=== PATIENT | female | born 1930 | race Caucasian/White ===

== ENCOUNTER 2019-12-23 18:25 | Emergency (ER) | payer OTHER ==
[2019-12-23] MEDS ORDERED: Mastisol Adhesive Liq ONE (21:09)
--- NOTE | 2019-12-23 21:34 | ER ---
Nurse's Notes [facility] Name: Ally Bedolla Age: 89 yrs Sex: Female : 1930 Arrival Date: 12/23/2019 Time: 18:29 Bed 12 Private MD: Diagnosis: skin avulsion left hand Presentation: 12/23 18:47 Presenting complaint: Patient states: I tripped, fell and hit my L hand on the coffee ca1 table. Denies LOC, hitting head, not on blood thinners. Lac on L hand. Transition of care: patient was not received from another setting of care. Onset of symptoms was December 23, 2019. Risk Assessment: Do you want to hurt yourself or someone else? Patient reports no desire to harm self or others. Initial Sepsis Screen: Does the patient meet any 2 criteria? No. Patient's initial sepsis screen is negative. Does the patient have a suspected source of infection? No. Patient's initial sepsis screen is negative. Care prior to arrival: None. 18:47 Method Of Arrival: Ambulatory ca1 18:47 Acuity: ELLIE 4 ca1 21:09 Mechanism of Injury: Fall from standing position. Trauma event details: Injury occurred ca1 in the [facility], Injury occurred: at home. Injury occurred: December 23, 2019. Trauma Activation: Not Applicable Physician: ED Physician; Name: ; Notified At: ; Arrived At: Physician: General Surgeon; Name: ; Notified At: ; Arrived At: Physician: Radiology; Name: ; Notified At: ; Arrived At: Physician: Respiratory; Name: ; Notified At: ; Arrived At: Physician: Lab; Name: ; Notified At: ; Arrived At: Historical: - Allergies: 18:52 No Known Allergies; ca1 - Home Meds: 18:52 None [Active]; ca1 - PMHx: 18:52 None; ca1 - PSHx: 18:52 Hip replacement R; ca1 - Immunization history:: Adult Immunizations unknown, Last tetanus immunization: unknown, Pneumococcal vaccine is not up to date, patient has never been vaccinated, Flu vaccine is not up to date. Patient has never been vaccinated. - Coronavirus screen:: The patient has NOT traveled to [place], [place], or [place] in the past 14 days. The patient has NOT had contact with known/suspected case of Coronavirus?. - Social history:: Smoking status: Patient/guardian denies using tobacco, the patient reports quitting approximately 20 years ago. - Ebola Screening: : Patient negative for fever greater than or equal to 101.5 degrees Fahrenheit, and additional compatible Ebola Virus Disease symptoms Patient denies exposure to infectious person Patient denies travel to an Ebola-affected area in the 21 days before illness onset No symptoms or risks identified at this time. Screenin:55 Abuse screen: Denies threats or abuse. Denies injuries from another. Nutritional ca1 screening: No deficits noted. Tuberculosis screening: No symptoms or risk factors identified. Fall Risk Fall in past 12 months (25 points). Ambulatory Aid- Crutches/Cane/Walker (15 pts). Total Heart Fall Scale indicates Low Risk Score (25-44 pts). Fall prevention measures have been instituted. Side Rails Up X 2 Family Present and informed to notify staff if they need to leave bedside As available Patient and Family Educated on Fall Prevention Program and strategies. Assessment: 20:55 General: Appears in no apparent distress. comfortable, Behavior is calm, cooperative, ca1 appropriate for age. Pain: Complains of pain in left hand Pain currently is 5 out of 10 on a pain scale. Neuro: Level of Consciousness is awake, alert, obeys commands, Oriented to person, place, time, situation, Appropriate for age. Derm: Skin is fragile, is thin, Skin is pink, warm \T\ dry. Musculoskeletal: Circulation, motion, and sensation intact. Capillary refill < 3 seconds, Range of motion: intact in all extremities. Injury Description: Laceration sustained to dorsum of left hand is clean, superficial, 2.6 to 7.5 cm long, not bleeding, a small amount of bleeding noted at this time. 21:00 Reassessment: Dr Ramirez at bedside to see and examine pt. fc Vital Signs: 18:52 BP 127 / 91; Pulse 65; Resp 18 S; Temp 98.1(TE); Pulse Ox 98% on R/A; Weight 43.09 kg ca1 (R); Height 5 ft. 2 in. (157.48 cm) (R); 18:52 Body Mass Index 17.38 (43.09 kg, 157.48 cm) ca1 ED Course: 18:29 Patient arrived in ED. rg4 18:50 Triage completed. ca1 18:52 Arm band placed on right wrist. ca1 20:55 Lawrence Ramirez MD is Attending Physician. tw4 20:55 Patient has correct armband on for positive identification. Bed in low position. Call ca1 light in reach. Side rails up X 1. 20:55 Patient did not have IV access during this emergency room visit. ca1 21:05 Wound care: to Skin tear located on dorsum of left hand was cleaned with with NS, fc irrigated with normal saline, dressed with Steri Strips, nonstick pad and lakhwinder wrap. 21:18 No provider procedures requiring assistance completed. fc Administered Medications: No medications were administered Outcome: 21:23 Discharge ordered by . tw4 21:28 Discharged to home ambulatory, with family. fc 21:28 Condition: good 21:28 Discharge instructions given to patient, family, Instructed on discharge instructions, follow up and referral plans. wound care, s/s of infection Demonstrated understanding of instructions, follow-up care, wound care, s/s of infection Prescriptions given X none 21:29 Patient left the ED. fc Signatures: Nickie Thompson RN RN Ruthy Andino 4 Lawrence Ramirez MD MD 4 Danielle Aranda RN RN ca1 Corrections: (The following items were deleted from the chart) 21:10 21:09 Immunization history Last tetanus immunization: - up to date. ca1 ca1
--- NOTE | 2019-12-24 21:34 | EDPHYS ---
Physician Documentation [facility] Name: Ally Bedolla Age: 89 yrs Sex: Female : 1930 Arrival Date: 12/23/2019 Time: 18:29 Bed 12 Private MD: ED Physician Lawrence Ramirez HPI: 12/24 05:06 This 89 yrs old Female presents to ER via Ambulatory with complaints of Fall tw4 Injury, Skin Tear(s). 05:06 Details of fall: The patient fell from an upright position, while walking. Onset: The tw4 symptoms/episode began/occurred today. Severity of symptoms: At their worst the symptoms were mild, in the emergency department the symptoms are unchanged. The patient has not experienced similar symptoms in the past. 05:08 Associated injuries: The patient sustained dorsum of left hand. tw4 Historical: - Allergies: 12/23 18:52 No Known Allergies; ca1 - Home Meds: 18:52 None [Active]; ca1 - PMHx: 18:52 None; ca1 - PSHx: 18:52 Hip replacement R; ca1 - Immunization history:: Adult Immunizations unknown, Last tetanus immunization: unknown, Pneumococcal vaccine is not up to date, patient has never been vaccinated, Flu vaccine is not up to date. Patient has never been vaccinated. - Coronavirus screen:: The patient has NOT traveled to [place], [place], or [place] in the past 14 days. The patient has NOT had contact with known/suspected case of Coronavirus?. - Social history:: Smoking status: Patient/guardian denies using tobacco, the patient reports quitting approximately 20 years ago. - Ebola Screening: : Patient negative for fever greater than or equal to 101.5 degrees Fahrenheit, and additional compatible Ebola Virus Disease symptoms Patient denies exposure to infectious person Patient denies travel to an Ebola-affected area in the 21 days before illness onset No symptoms or risks identified at this time. ROS: 12/24 05:06 Constitutional: Negative for fever, chills, and weight loss, Eyes: Negative for injury, tw4 pain, redness, and discharge, Cardiovascular: Negative for chest pain, palpitations, and edema, Respiratory: Negative for shortness of breath, cough, wheezing, and pleuritic chest pain, Abdomen/GI: Negative for abdominal pain, nausea, vomiting, diarrhea, and constipation. MS/extremity: Positive for injury or acute deformity, laceration, Negative for decreased range of motion, deformity. Exam: 05:06 Constitutional: This is a well developed, well nourished patient who is awake, alert, tw4 and in no acute distress. Head/Face: Normocephalic, atraumatic. Chest/axilla: Normal chest wall appearance and motion. Nontender with no deformity. No lesions are appreciated. Cardiovascular: Regular rate and rhythm with a normal S1 and S2. No gallops, murmurs, or rubs. Normal PMI, no JVD. No pulse deficits. Respiratory: Lungs have equal breath sounds bilaterally, clear to auscultation and percussion. No rales, rhonchi or wheezes noted. No increased work of breathing, no retractions or nasal flaring. 05:06 Musculoskeletal/extremity: Extremities: noted in the dorsum of left hand: laceration. Vital Signs: 12/23 18:52 BP 127 / 91; Pulse 65; Resp 18 S; Temp 98.1(TE); Pulse Ox 98% on R/A; Weight 43.09 kg ca1 (R); Height 5 ft. 2 in. (157.48 cm) (R); 18:52 Body Mass Index 17.38 (43.09 kg, 157.48 cm) ca1 Laceration: 12/24 05:09 Wound Repair of 8cm ( 3.1in ) subcutaneous laceration to dorsum of left hand. Distal tw4 neuro/vascular/tendon intact. Anesthesia: Local anesthetic administered with 1% lidocaine. Skin closed with 1-0 Prolene using steri strips. MDM: 12/23 20:55 Patient medically screened. tw4 12/24 05:09 Differential diagnosis: contusion, fracture, laceration, sprain. Data reviewed: vital tw4 signs, nurses notes. Data interpreted: Pulse oximetry: Interpretation: normal. Counseling: I had a detailed discussion with the patient and/or guardian regarding: the historical points, exam findings, and any diagnostic results supporting the discharge/admit diagnosis. Administered Medications: No medications were administered Disposition: 12/23/19 21:23 Discharged to Home. Impression: skin avulsion left hand. - Condition is Stable. - Discharge Instructions: Deep Skin Avulsion. - Medication Reconciliation Form, Thank You Letter, Antibiotic Education, Prescription Opioid Use form. - Follow up: Private Physician; When: Upon discharge from the Emergency Department; Reason: If symptoms return, Recheck today's complaints, Continuance of care. - Problem is new. - Symptoms have improved. Signatures: Nickie Thompson RN RN Lawrence Ramirez MD MD tw4 Danielle Aranda RN RN ca1 Corrections: (The following items were deleted from the chart) 12/23 21:10 21:09 Immunization history Last tetanus immunization: - up to date. ca1 ca1 21:29 21:23 12/23/2019 21:23 Discharged to Home. Impression: skin avulsion left hand. fc Condition is Stable. Forms are Medication Reconciliation Form, Thank You Letter, Antibiotic Education, Prescription Opioid Use. Follow up: Private Physician; When: Upon discharge from the Emergency Department; Reason: If symptoms return, Recheck today's complaints, Continuance of care. Problem is new. Symptoms have improved. tw4 12/24 05:08 05:06 Associated injuries: The patient sustained dorsum of right hand, laceration, 8 tw4 cm(s), tw4
[2019-12-25 22:11] VITALS: BP 127/91; TEMP 98.1; O2SAT 98
== END 2019-12-23 21:29 | disposition home or self-care (01) ==
LOC: ER 18:25
PROC: 0JQK0ZZ Repair Left Hand Subcutaneous Tissue and Fascia, Open Approach (ICD-10-PCS; principal; 2019-12-23)
DX: S61.412A Laceration without foreign body of left hand, initial encounter (principal); W19.XXXA Unspecified fall, initial encounter; Y93.01 Activity, walking, marching and hiking; Y92.9 Unspecified place or not applicable
CPT/HCPCS: 99283

== ENCOUNTER 2020-05-10 09:34 | Emergency (ER) | payer OTHER ==
--- NOTE | 2020-05-10 10:25 | ER ---
Nurse's Notes [facility] Name: Ally Bedolla Age: 89 yrs Sex: Female : 1930 Arrival Date: 05/10/2020 Time: 09:35 Bed 8 Private MD: Diagnosis: Closed distal right radius fracture Presentation: 05/10 09:50 Chief complaint: Patient states: feet gave out while walking to mailbox yesterday, has iw pain, swelling, bruising to right wrist, no other injuries noted. Coronavirus screen: Proceed with normal triage. Patient denies a cough. Patient denies shortness of breath or difficulty breathing. Patient denies measured and/or subjective temperature greater than 100.4F prior to today's visit. Patient denies travel on a cruise ship or to a country the [facility] currently lists as an affected area. Patient denies contact with known and/or suspected case of COVID-19. Ebola Screen: Patient negative for fever greater than or equal to 101.5 degrees Fahrenheit, and additional compatible Ebola Virus Disease symptoms Patient denies exposure to infectious person. Patient denies travel to an Ebola-affected area in the 21 days before illness onset. No symptoms or risks identified at this time. Initial Sepsis Screen: Does the patient meet any 2 criteria? No. Patient's initial sepsis screen is negative. Does the patient have a suspected source of infection? No. Patient's initial sepsis screen is negative. Risk Assessment: Do you want to hurt yourself or someone else? Patient reports no desire to harm self or others. Onset of symptoms was May 09, 2020. 09:50 Acuity: ELLIE 4 iw 09:50 Method Of Arrival: Ambulatory iw Historical: - Allergies: 09:53 No Known Allergies; iw - Home Meds: 09:53 None [Active]; iw - PMHx: 09:53 Alzheimers; Heart Murmur; iw - PSHx: 09:53 Hip replacement R; iw - Immunization history:: Adult Immunizations. - Social history:: Smoking status: Patient denies any tobacco usage or history of. Screenin:51 Abuse screen: Denies threats or abuse. Nutritional screening: No deficits noted. rb1 Tuberculosis screening: No symptoms or risk factors identified. Fall Risk Fall in past 12 months (25 points). Secondary diagnosis (15 points) Alzheimer's, No IV (0 pts). Ambulatory Aid- None/Bed Rest/Nurse Assist (0 pts). Gait- Normal/Bed Rest/Wheelchair (0 pts) Mental Status- Overestimates/Forgets Limitations (15 pts.). Assessment: 09:51 General: Appears in no apparent distress. comfortable, Behavior is calm, cooperative. rb1 Pain: Complains of pain in right wrist Pain currently is 5 out of 10 on a pain scale. Pain began yesterday at 1800 when she went to the mailbox. Neuro: Level of Consciousness is awake, alert, obeys commands, Oriented to person, place, time, situation. Cardiovascular: Capillary refill < 3 seconds. Respiratory: Airway is patent Respiratory effort is even, unlabored, Respiratory pattern is regular, symmetrical. GI: No signs and/or symptoms were reported involving the gastrointestinal system. : No signs and/or symptoms were reported regarding the genitourinary system. Derm: Bruising that is dark purple, on right hand, forearm. 09:51 Musculoskeletal: Range of motion: limited in right wrist Swelling present in right rb1 wrist. 10:32 Reassessment: Patient appears in no apparent distress at this time. Patient and/or rb1 family updated on plan of care and expected duration. Pain level reassessed. Patient is alert, oriented x 3, equal unlabored respirations, skin warm/dry/pink. Vital Signs: 09:50 BP 155 / 59; Pulse 59; Resp 16; Temp 97.8; Pulse Ox 100% on R/A; iw 09:50 Weight 44.45 kg (R); Height 5 ft. 1 in. (154.94 cm); Pain 5/10; rb1 10:32 BP 144 / 58; Pulse 56; Resp 16; Pulse Ox 100% ; rb1 09:50 Body Mass Index 18.52 (44.45 kg, 154.94 cm) rb1 ED Course: 09:35 Patient arrived in ED. ag5 09:43 Robby Acosta NP is PHCP. pm1 09:43 Clint Quijano MD is Attending Physician. pm1 09:47 Nicky Mckeon, TOMAS is Primary Nurse. rb1 09:51 Patient has correct armband on for positive identification. Bed in low position. Call rb1 light in reach. Side rails up X 1. Pulse ox on. NIBP on. Warm blanket given. 09:52 Triage completed. iw 09:53 Arm band placed on. iw 10:06 Wrist Right 3 View XRAY In Process Unspecified. EDMS 10:10 Orthoglass splint: Sugar tong splint applied on right arm. Sling applied to right arm. [facility] 10:32 No provider procedures requiring assistance completed. Patient did not have IV access rb1 during this emergency room visit. Administered Medications: No medications were administered Outcome: 10:24 Discharge ordered by MD. pm1 10:32 Discharged to home via wheelchair, with family. rb1 10:32 Condition: stable 10:32 Discharge instructions given to family, Instructed on discharge instructions, follow up and referral plans. Demonstrated understanding of instructions, follow-up care, Prescriptions given X none 10:33 Patient left the ED. rb1 Signatures: Dispatcher [employer] Chelsea Manzano, TOMAS MARIN iw Nicky Mckeon RN RN rb1 Robby Acosta, [employer] MANAGER pm1 Grace Hoyt 5 Chichi Scanlon [facility]
--- NOTE | 2020-05-10 10:25 | EDPHYS ---
Physician Documentation [facility] Name: Ally Bedolla Age: 89 yrs Sex: Female : 1930 Arrival Date: 05/10/2020 Time: 09:35 Bed 8 Private MD: ED Physician Clint Quijano HPI: 05/10 10:12 This 89 yrs old Female presents to ER via Ambulatory with complaints of Fall pm1 Injury, Wrist Injury. 10:12 Details of fall: The patient fell from an upright position, while walking. Onset: The pm1 symptoms/episode began/occurred yesterday. Associated injuries: The patient sustained right wrist. Severity of symptoms: in the emergency department the symptoms are unchanged. The patient has not experienced similar symptoms in the past. The patient has not recently seen a physician. Patient was walking to the mailbox yesterday and her legs buckled and she fell to the ground with her right hand forward. No head injury, headache, neck pain, LOC. No chest pain, dizziness or shortness of breath. Her son applied a homemade splint to the right wrist. Historical: - Allergies: 09:53 No Known Allergies; iw - Home Meds: 09:53 None [Active]; iw - PMHx: 09:53 Alzheimers; Heart Murmur; iw - PSHx: 09:53 Hip replacement R; iw - Immunization history:: Adult Immunizations. - Social history:: Smoking status: Patient denies any tobacco usage or history of. ROS: 10:12 Constitutional: Negative for fever, chills, and weight loss, Neck: Negative for injury, pm1 pain, and swelling, Cardiovascular: Negative for chest pain, palpitations, and edema, Respiratory: Negative for shortness of breath, cough, wheezing, and pleuritic chest pain, Abdomen/GI: Negative for abdominal pain, nausea, vomiting, diarrhea, and constipation, Back: Negative for injury and pain. 10:12 Skin: Negative for injury, rash, and discoloration, Neuro: Negative for headache, weakness, numbness, tingling, and seizure. 10:12 MS/extremity: Positive for pain, swelling, tenderness, of the right wrist. Exam: 10:12 Constitutional: This is a well developed, well nourished patient who is awake, alert, pm1 and in no acute distress. Head/Face: Normocephalic, atraumatic. 10:12 Skin: Warm, dry with normal turgor. Normal color with no rashes, no lesions, and no evidence of cellulitis. 10:12 Neck: External neck: tenderness, is not appreciated, C-spine: no acute changes, vertebral tenderness, is not appreciated, ROM/movement: is normal, is supple, without pain, no range of motions limitations. 10:12 Cardiovascular: Exam negative for acute changes, Rate: normal, Rhythm: regular, Pulses: no pulse deficits are appreciated. 10:12 Respiratory: Exam negative for acute changes, respiratory distress, shortness of breath. 10:12 Musculoskeletal/extremity: Extremities: grossly normal except: noted in the right wrist: ecchymosis, swelling, tenderness, Pulses: noted to be 2+ in the right radial artery, the right hand Sensation intact. 10:12 Neuro: Exam negative for acute changes, Orientation: is normal, Mentation: is normal, Motor: is normal, moves all fours, Gait: is steady, at a normal pace, without difficulty. Vital Signs: 09:50 BP 155 / 59; Pulse 59; Resp 16; Temp 97.8; Pulse Ox 100% on R/A; iw 09:50 Weight 44.45 kg (R); Height 5 ft. 1 in. (154.94 cm); Pain 5/10; rb1 10:32 BP 144 / 58; Pulse 56; Resp 16; Pulse Ox 100% ; rb1 09:50 Body Mass Index 18.52 (44.45 kg, 154.94 cm) rb1 MDM: 09:49 Patient medically screened. pm1 09:50 ED course: Patient refused pain medications. pm1 10:02 Data reviewed: vital signs. Data interpreted: Pulse oximetry: on room air is 100 %. pm1 Interpretation: normal. 10:02 Counseling: I had a detailed discussion with the patient and/or guardian regarding: the pm1 historical points, exam findings, and any diagnostic results supporting the discharge/admit diagnosis, radiology results, the need for outpatient follow up, for definitive care, a orthopedic surgeon, to return to the emergency department if symptoms worsen or persist or if there are any questions or concerns that arise at home. 10:25 ED course: Patient refused narcotic pain medications. pm1 05/10 09:50 Order name: Wrist Right 3 View XRAY pm1 05/10 09:50 Order name: Splint - Sugar Tong - Forearm; Complete Time: 10:10 pm1 05/10 09:50 Order name: Sling; Complete Time: 10:10 pm1 Administered Medications: No medications were administered Disposition: 13:30 Co-signature as Attending Physician, Clint Quijano MD. rn Disposition: 05/10/20 10:24 Discharged to Home. Impression: Closed distal right radius fracture. - Condition is Stable. - Discharge Instructions: Wrist Fracture Treated With Immobilization, Wrist Splint, How to Use a Sling. - Medication Reconciliation Form, Thank You Letter, Antibiotic Education, Prescription Opioid Use form. - Follow up: Emergency Department; When: As needed; Reason: Worsening of condition. Follow up: Private Physician; When: 2 - 3 days; Reason: Recheck today's complaints, Continuance of care, Re-evaluation by your physician. - Problem is new. - Symptoms have improved. Signatures: Dispatcher [employer] EDMS Chelsea Zavala RN RN iw Nieto, Roman, MD MD rn Barber, Rebecca, RN RN rb1 Robby Acosta, FOREST RANGER TECHNICIAN FOREST RANGER TECHNICIAN pm1 Corrections: (The following items were deleted from the chart) 10:33 10:24 05/10/2020 10:24 Discharged to Home. Impression: Closed distal right radius rb1 fracture. Condition is Stable. Forms are Medication Reconciliation Form, Thank You Letter, Antibiotic Education, Prescription Opioid Use. Follow up: Emergency Department; When: As needed; Reason: Worsening of condition. Follow up: Private Physician; When: 2 - 3 days; Reason: Recheck today's complaints, Continuance of care, Re-evaluation by your physician. Problem is new. Symptoms have improved. pm1
[2020-05-10 10:39] VITALS: TEMP 97.8; O2SAT 100
[2020-05-10 10:40] VITALS: BP 144/58
--- NOTE | 2020-05-10 10:48 | RAD REPORT ---
EXAM DESCRIPTION: RAD - Wrist Right 3 View - 05/10/2020 10:06 am CLINICAL HISTORY: Right wrist pain status post injury FINDINGS: An impacted, comminuted fracture involves the distal right radius with moderate displaceme nt of fracture fragments. No dislocation is seen
== END 2020-05-10 10:33 | disposition home or self-care (01) ==
LOC: ER 09:34
PROC: 2W3CX1Z Immobilization of Right Lower Arm using Splint (ICD-10-PCS; principal; 2020-05-10)
DX: S52.501A Unspecified fracture of the lower end of right radius, initial encounter for closed fracture (principal); W19.XXXA Unspecified fall, initial encounter; Y93.01 Activity, walking, marching and hiking; Y92.009 Unspecified place in unspecified non-institutional (private) residence as the place of occurrence of the external cause; G30.9 Alzheimer's disease, unspecified; F02.80 Dementia in other diseases classified elsewhere, unspecified severity, without behavioral disturbance, psychotic disturbance, mood disturbance, and anxiety
CPT/HCPCS: 99284

== ENCOUNTER 2020-11-25 09:53 | Emergency (ER) | payer OTHER ==
--- OUTSIDE RECORDS SUMMARY | 2020-11-25 10:03 | XMS REPORT | Continuity of Care Document ---
:1930 Author Organization [facility] t Address [address] [place] [address] Care Team Providers Name Role Phone Ace Temple Attending Clinician Problems This patient has no known problems. Allergies, Adverse Reactions, Alerts This patient has no known allergies or adverse reactions. Medications This patient has no known medications. Procedures This patient has no known procedures. Encounters Start End Encounter Admission Attending Care Care Encounter Source Date/Time Date/Time Type Type Clinicians Facility Department ID 2020-06-22 2020-06-22 [facility] [id number] 14:41:14 23:59:00 Encounter [facility] [id number] Surgical [id number] Specialti [id number] es [address] 2020-06-22 2020-06-22 Office [facility] [id number] 14:14:27 14:29:27 Visit [facility] [id number] Surgical [id number] Specialti [id number] es [address] [place] Results This patient has no known results.
--- NOTE | 2020-11-25 10:27 | RAD REPORT ---
EXAM DESCRIPTION: CT - [id number] - 11/25/2020 10:10 am CLINICAL HISTORY: Trauma, head and neck injury. head injury COMPARISON: No comparisons TECHNIQUE: Axial 5 mm thick images of the head were obtained. Axial 2 mm thick images of the cervical spine were obtained with sagittal and coronal reconstruction images generated and reviewed. All CT scans are performed using dose optimization technique as appropriate and may include automated exposure control or mA/KV adjustment according to patient size. FINDINGS: CT HEAD WITHOUT CONTRAST: No acute hemorrhage, hydrocephalus or extra-axial collection is identified.Mild generalized brain atr ophy is present with mild periventricular and deep white matter chronic microvascular ischemic change s.No areas of brain edema or midline shift. The paranasal sinuses and right mastoids are clear.Left mastoid effusion is present.The calvarium is intact. CT CERVICAL SPINE WITHOUT CONTRAST: No fracture or subluxation.Multilevel spondylosis of the cervical spine is notedNo prevertebral soft tissues swelling is identified. Carotid atherosclerosis. Upper lung gust[place] are emphysematous. IMPRESSION: No acute intracranial or cervical spine findings. Mild left mastoid effusion. Mild cervical spondylosis.
--- NOTE | 2020-11-25 10:49 | RAD REPORT ---
EXAM DESCRIPTION: RAD - Hip Right 2 View - 11/25/2020 10:38 am CLINICAL HISTORY: fall;Pain COMPARISON: No comparisons FINDINGS: The bones are osteopenic. Right total hip arthroplasty is noted. No acute fracture or disl ocation evident.
--- NOTE | 2020-11-25 11:38 | ER ---
Nurse's Notes [facility] Name: Ally Bedolla Age: 89 yrs Sex: Female : 1930 Arrival Date: 11/25/2020 Time: 09:54 Bed 14 Private MD: Diagnosis: Contusion of right hip;Superficial injury of head Presentation: 11/25 10:00 Chief complaint: Patient states: Slipped and fell. I don't recall what I hit my head ca1 on. Lac on R pentecostal. Pain on R hip. Patient's son or daughter states: Slipped and fell few hours ago. Coronavirus screen: Client denies travel out of the [place] in the last 14 days. At this time, the client does not indicate any symptoms associated with coronavirus-19. Ebola Screen: Patient negative for fever greater than or equal to 101.5 degrees Fahrenheit, and additional compatible Ebola Virus Disease symptoms Patient denies exposure to infectious person. Patient denies travel to an Ebola-affected area in the 21 days before illness onset. No symptoms or risks identified at this time. Initial Sepsis Screen: Does the patient meet any 2 criteria? No. Patient's initial sepsis screen is negative. Does the patient have a suspected source of infection? No. Patient's initial sepsis screen is negative. Risk Assessment: Do you want to hurt yourself or someone else? Patient reports no desire to harm self or others. Onset of symptoms was November 25, 2020. 10:00 Method Of Arrival: Wheelchair ca1 10:00 Acuity: ELLIE 2 ca1 10:11 Care prior to arrival: None. Mechanism of Injury: Fall from standing position. Trauma ca1 event details: Injury occurred in the [facility], Injury occurred: at home. Injury occurred: November 25, 2020. Triage Assessment: 10:10 General: Appears in no apparent distress. comfortable, Behavior is calm, cooperative, ca1 appropriate for age. Pain: Complains of pain in right hip. EENT: No signs and/or symptoms were reported regarding the EENT system. Neuro: Level of Consciousness is awake, alert, obeys commands, Oriented to person. Cardiovascular: Heart tones S1 S2 present Capillary refill < 3 seconds Patient's skin is warm and dry. Respiratory: Airway is patent Respiratory effort is even, unlabored, Respiratory pattern is regular, symmetrical, Breath sounds are clear bilaterally. GI: Abdomen is flat, non-distended, Bowel sounds present X 4 quads. Abd is soft and non tender X 4 quads. : No signs and/or symptoms were reported regarding the genitourinary system. Derm: Skin is fragile, is thin, with poor turgor Skin is pink, warm \T\ dry. Musculoskeletal: Circulation, motion, and sensation intact. Capillary refill < 3 seconds, Range of motion: intact in all extremities. Trauma Activation: Alert Physician: ED Physician; Name: ; Notified At: ; Arrived At: Physician: General Surgeon; Name: ; Notified At: ; Arrived At: Physician: Radiology; Name: ; Notified At: ; Arrived At: Physician: Respiratory; Name: ; Notified At: ; Arrived At: Physician: Lab; Name: ; Notified At: ; Arrived At: Historical: - Allergies: 10:10 No Known Allergies; ca1 - Home Meds: 10:10 None [Active]; ca1 - PMHx: 10:10 Alzheimers; Heart Murmur; ca1 - PSHx: 10:10 Hip replacement R; ca1 - Immunization history:: Adult Immunizations not up to date. - Social history:: Smoking status: Patient denies any tobacco usage or history of. - Immunization history: Last tetanus immunization: unknown. - Family history:: not pertinent. - Hospitalizations: : No recent hospitalization is reported. Screenin:11 Abuse screen: Denies threats or abuse. Denies injuries from another. Tuberculosis ca1 screening: No symptoms or risk factors identified. 10:13 Nutritional screening: No deficits noted. Fall Risk Fall in past 12 months (25 points). ca1 Secondary diagnosis (15 points) Alzheimer's, Ambulatory Aid- Crutches/Cane/Walker (15 pts). Total Heart Fall Scale indicates High Risk Score (45 or more points). Fall prevention measures have been instituted. Side Rails Up X 2 Family Present and informed to notify staff if the need to leave the bedside As available patient and family educated on Fall Prevention Program and Strategies. Primary Survey: 10:11 NO uncontrolled hemorrhage observed. A: The patient is alert. Breathing/Chest: ca1 Respiratory pattern: regular, Respiratory effort: spontaneous, unlabored, Breath sounds: clear, bilaterally. Chest inspection: symmetrical rise and fall of the chest. Circulation: Heart tones present. Pulses: palpable bilateral radial, brachial, femoral, popliteal, posterior tibial and and dorsalis pedis arteries.. Skin color: pink, Skin temperature: warm, dry. Disability Alert. Exposure/Environment: All clothing and personal items were removed. Forensic evidence collection is not deemed to be indicated at this time. Items placed in patient belonging bag. Obvious injury(ies) are noted at this time: Lac on R pentecostal. Hematoma on R pentecostal A warming method has been applied: A warm blanket has been provided to the patient. 10:53 Reassessment Airway Airway Breathing/Chest Respiratory pattern Regular Respiratory ca1 effort Spontaneous Unlabored Chest inspection Symmetrical Circulation Heart tones Present Pulses Palpable Color [place] Temperature Warm Dry Disability Alert. Secondary Survey: 10:53 HEENT: No deficits noted. Gastrointestinal: No deficits noted. : No deficits noted. ca1 Musculoskeletal: No deficits noted. Assessment: 10:13 Reassessment: see triage notes. ca1 10:52 Reassessment: Patient appears in no apparent distress at this time. Patient and/or ca1 family updated on plan of care and expected duration. Pain level reassessed. Patient is alert, oriented x 3, equal unlabored respirations, skin warm/dry/pink. 11:45 Reassessment: Patient appears in no apparent distress at this time. Patient and/or ca1 family updated on plan of care and expected duration. Pain level reassessed. Patient is alert, oriented x 3, equal unlabored respirations, skin warm/dry/pink. Vital Signs: 10:00 BP 160 / 72; Resp 18 S; Temp 98.5; Weight 45.36 kg (R); Height 5 ft. 0 in. (152.40 cm) ca1 (R); 10:14 Pulse 70; Pulse Ox 100% on R/A; ca1 10:52 BP 172 / 65; Pulse 65; Resp 15 S; Pulse Ox 100% on R/A; ca1 11:45 BP 160 / 71; Pulse 72; Resp 16 S; Pulse Ox 99% on R/A; ca1 10:00 Body Mass Index 19.53 (45.36 kg, 152.40 cm) ca1 [place] Coma Score: 10:11 Eye Response: spontaneous(4). Verbal Response: oriented(5). Motor Response: obeys ca1 commands(6). Total: 15. Trauma Score (Adult): 10:11 Eye Response: spontaneous(1); Verbal Response: oriented(1); Motor Response: obeys ca1 commands(2); Systolic BP: > 89 mm Hg(4); Respiratory Rate: 10 to 29 per min(4); [place] Score: 15; Trauma Score: 12 ED Course: 09:54 Patient arrived in ED. ag5 09:56 Clint Quijano MD is Attending Physician. rn 10:07 Danielle Aranda RN is Primary Nurse. ca1 10:09 Triage completed. ca1 10:10 CT Head C Spine In Process Unspecified. EDMS 10:10 Arm band placed on right wrist. ca1 10:11 Patient has correct armband on for positive identification. Placed in gown. Bed in low ca1 position. Call light in reach. Side rails up X2. 10:11 Patient maintains SpO2 saturation greater than 95% on room air. ca1 10:13 nurse transition on. Pulse ox on. NIBP on. Warm blanket given. ca1 10:13 Thermoregulation: warm blanket given to patient. ca1 10:38 Hip Right 2 View In Process Unspecified. EDMS 11:00 Wound care: to laceration located on right pentecostal was cleaned with Hibiclens, dressed ca1 with Neosporin, 4X4s, Patient tolerated well. 12:12 No provider procedures requiring assistance completed. Patient did not have IV access ca1 during this emergency room visit. Administered Medications: 11:30 Drug: [place] 5 mg-325 mg 1 tabs {Note: rass 0.} Route: PO; ca1 12:10 Follow up: Response: No adverse reaction; Pain is decreased; RASS: Alert and Calm (0) ca1 Intake: 10:11 PO: 0ml; Total: 0ml. ca1 Outcome: 11:37 Discharge ordered by . rn 12:12 Discharged to home via wheelchair, with family. ca1 12:12 Condition: stable 12:12 Discharge instructions given to patient, family, Instructed on discharge instructions, follow up and referral plans. wound care, Demonstrated understanding of instructions, follow-up care, medications, wound care. 12:12 Patient's length of stay was not longer than 2 hours. ca1 12:13 Patient left the ED. ca1 Signatures: Dispatcher [employer] EDRI Clint Quijano MD MD rn Acob, Cheryl, RN RN ca1 Chichi Scanlon ag5
--- NOTE | 2020-11-25 11:38 | EDPHYS ---
Physician Documentation [facility] Name: Ally Bedolla Age: 89 yrs Sex: Female : 1930 Arrival Date: 11/25/2020 Time: 09:54 Bed 14 Private MD: ED Physician Clint Quijano HPI: 11/25 10:07 This 89 yrs old Female presents to ER via Unassigned with complaints of Fall rn Injury. 10:07 Details of fall: The patient fell from an upright position. Onset: The symptoms/episode rn began/occurred just prior to arrival. Associated injuries: The patient sustained injury to the head. Severity of symptoms: At their worst the symptoms were mild, in the emergency department the symptoms are unchanged. The patient has not experienced similar symptoms in the past. The patient has not recently seen a physician. Reports slipped on tile, hit head, no LOC, not on blood thinners, reports mild pain to right side of head and right hip. Family member reports ambulatory to vehicle and acting normal. . Historical: - Allergies: 10:10 No Known Allergies; ca1 - Home Meds: 10:10 None [Active]; ca1 - PMHx: 10:10 Alzheimers; Heart Murmur; ca1 - PSHx: 10:10 Hip replacement R; ca1 - Immunization history:: Adult Immunizations not up to date. - Social history:: Smoking status: Patient denies any tobacco usage or history of. - Immunization history: Last tetanus immunization: unknown. - Family history:: not pertinent. - Hospitalizations: : No recent hospitalization is reported. ROS: 10:07 Constitutional: Negative for fever, chills, and weight loss, Eyes: Negative for injury, rn pain, redness, and discharge, Neck: Negative for injury, pain, and swelling, Cardiovascular: Negative for chest pain, palpitations, and edema, Respiratory: Negative for shortness of breath, cough, wheezing, and pleuritic chest pain, Abdomen/GI: Negative for abdominal pain, nausea, vomiting, diarrhea, and constipation, Back: Negative for injury and pain, MS/Extremity: + right hip pain Skin: + bruising and cut to right side of head Neuro: Negative for weakness, numbness, tingling, and seizure. Exam: 10:07 Constitutional: This is a well developed, well nourished patient who is awake, alert, rn and in no acute distress. Blood noted on blouse and in hair. Head/Face: Normocephalic, + right temporal region with 2 cm ecchymosis and along inferior margin of ecchymosis a 1cm angulated/superficial skin tear, no active bleeding. Eyes: Pupils equal round and reactive to light, extra-ocular motions intact. Neck: No midline tenderness Chest/axilla: Normal chest wall appearance and motion. Nontender with no deformity. Cardiovascular: Regular rate and rhythm. No pulse deficits. Respiratory: Speaking full sentences. No increased work of breathing, no retractions or nasal flaring. Abdomen/GI: soft, non-tender Back: No spinal tenderness. Skin: Warm, dry MS/ Extremity: Pulses equal, no cyanosis. Neurovascular intact. Mild right hip tenderness and painful ROM. Neuro: Awake and alert, GCS 15, oriented to person, place, time, and situation. Cranial nerves II-XII grossly intact. Motor strength 5/5 in all extremities. Sensory grossly intact. Cerebellar exam normal. Normal gait. Vital Signs: 10:00 BP 160 / 72; Resp 18 S; Temp 98.5; Weight 45.36 kg (R); Height 5 ft. 0 in. (152.40 cm) ca1 (R); 10:14 Pulse 70; Pulse Ox 100% on R/A; ca1 10:52 BP 172 / 65; Pulse 65; Resp 15 S; Pulse Ox 100% on R/A; ca1 11:45 BP 160 / 71; Pulse 72; Resp 16 S; Pulse Ox 99% on R/A; ca1 10:00 Body Mass Index 19.53 (45.36 kg, 152.40 cm) ca1 [place] Coma Score: 10:11 Eye Response: spontaneous(4). Verbal Response: oriented(5). Motor Response: obeys ca1 commands(6). Total: 15. Trauma Score (Adult): 10:11 Eye Response: spontaneous(1); Verbal Response: oriented(1); Motor Response: obeys ca1 commands(2); Systolic BP: > 89 mm Hg(4); Respiratory Rate: 10 to 29 per min(4); Matt Score: 15; Trauma Score: 12 MDM: 09:56 Patient medically screened. rn 11:35 Differential diagnosis: closed head injury, contusion, fracture, laceration, skin tear. rn 11:35 Data reviewed: vital signs, nurses notes, radiologic studies, CT scan, plain films, and rn as a result, I will discharge patient. Counseling: I had a detailed discussion with the patient and/or guardian regarding: the historical points, exam findings, and any diagnostic results supporting the discharge/admit diagnosis, lab results, radiology results, the need for outpatient follow up, to return to the emergency department if symptoms worsen or persist or if there are any questions or concerns that arise at home. Response to treatment: the patient's symptoms have mildly improved after treatment, and as a result, I will discharge patient. Special discussion: Based on the patient's history, exam and DX evaluation, there is no indication for emergent intervention or inpatient TX. It is understood by the patient/guardian that if the SXs persist or worsen they need to return immediately for re-evaluation. I discussed with the patient/guardian in detail that at this point there is no indication for admission to the hospital. It is understood, however, that if the symptoms persist or worsen the patient needs to return immediately for re-evaluation. ED course: Neg ct head/cspine, neg right hip, ambulatory before and ambulatory to bathroom. Will dc home with return precautions.. 11/25 10:06 Order name: CT Head C Spine; Complete Time: 10:55 rn 11/25 10:24 Order name: Hip Right 2 View; Complete Time: 10:55 EDMS Administered Medications: 11:30 Drug: [place] 5 mg-325 mg 1 tabs {Note: rass 0.} Route: PO; ca1 12:10 Follow up: Response: No adverse reaction; Pain is decreased; RASS: Alert and Calm (0) ca1 Disposition: 11/25/20 11:37 Discharged to Home. Impression: Contusion of right hip, Superficial injury of head. - Condition is Stable. - Discharge Instructions: Head Injury, Adult, Skin Tear Care. - Medication Reconciliation Form, Thank You Letter, Antibiotic Education, Prescription Opioid Use form. - Follow up: Private Physician; When: As needed; Reason: Recheck today's complaints, Re-evaluation by your physician. - Problem is new. - Symptoms have improved. Signatures: Dispatcher [employer] EDMS Clint Quijano MD MD rn Acob, TOMAS Santos RN ca1 Corrections: (The following items were deleted from the chart) 10:24 10:07 Ankle Right 3 View+RAD.RAD.BRZ ordered. EDMS EDMS 11:36 10:07 Constitutional: This is a well developed, well nourished patient who is awake, rn alert, and in no acute distress. Blood noted on blouse and in hair. Head/Face: Normocephalic, + right temporal region with 2 cm ecchymosis and along inferior margin of ecchymosis a 1cm angulated/superficial laceration, no active bleeding. Eyes: Pupils equal round and reactive to light, extra-ocular motions intact. Neck: No midline tenderness Chest/axilla: Normal chest wall appearance and motion. Nontender with no deformity. Cardiovascular: Regular rate and rhythm. No pulse deficits. Respiratory: Speaking full sentences. No increased work of breathing, no retractions or nasal flaring. Abdomen/GI: soft, non-tender Back: No spinal tenderness. Skin: Warm, dry MS/ Extremity: Pulses equal, no cyanosis. Neurovascular intact. Mild right hip tenderness and painful ROM. Neuro: Awake and alert, GCS 15, oriented to person, place, time, and situation. Cranial nerves II-XII grossly intact. Motor strength 5/5 in all extremities. Sensory grossly intact. Cerebellar exam normal. Normal gait. rn 12:13 11:37 11/25/2020 11:37 Discharged to Home. Impression: Contusion of right hip; ca1 Superficial injury of head. Condition is Stable. Forms are Medication Reconciliation Form, Thank You Letter, Antibiotic Education, Prescription Opioid Use. Follow up: Private Physician; When: As needed; Reason: Recheck today's complaints, Re-evaluation by your physician. Problem is new. Symptoms have improved. rn
[2020-11-25] MEDS ORDERED: HYDROCODONE/APAP 5/325 MG TAB ONE (11:42)
[2020-11-25 12:27] VITALS: TEMP 98.5
[2020-11-25 12:31] VITALS: BP 160/71; O2SAT 99
== END 2020-11-25 12:13 | disposition home or self-care (01) ==
LOC: ER 09:53
DX: S00.90XA Unspecified superficial injury of unspecified part of head, initial encounter (principal); S70.01XA Contusion of right hip, initial encounter; W01.0XXA Fall on same level from slipping, tripping and stumbling without subsequent striking against object, initial encounter; Y93.9 Activity, unspecified; Y92.9 Unspecified place or not applicable
CPT/HCPCS: 70450; 72125; 99285; G0390

== ENCOUNTER 2020-12-08 10:23 | Observation (INO) | payer OTHER ==
--- OUTSIDE RECORDS SUMMARY | 2020-12-08 10:56 | XMS REPORT | Continuity of Care Document ---
:1930 Author Organization [facility] t Address [address] [place] [address] Care Team Providers Name Role Phone Ace [...] Type Clinicians Facility Department ID 2020-06-22 2020-06-22 [facility] [id number] 14:41:14 23:59:00 Encounter [facility] [id number] Surgical [id number] Specialti [phone] es [address] 2020-06-22 2020-06-22 Office [facility] [id number] 14:14:27 14:29:27 Visit [facility] [id number] Surgical [id number] Specialti [phone] es 198 [place] Results This patient has no known results.
[2020-12-08 11:03] LABS: Absolute Lymphocytes (CBC) 1.3 K/uL (0.7-4.9); Basophils % 0.4 % (0-1.3); Hematocrit 38.4 % (36.0-45.0); Lymphocytes % 9.7 % (15.3-44.8); MPV 8.3 fL (7.6-11.3); RBC Red Blood Cell Count 4.17 M/uL (3.86-4.86)
[2020-12-08 11:10] LABS: Protime INR 1.02
[2020-12-08 11:26] LABS: ALT/SGPT 17 U/L (12-78); AST/SGOT 33 U/L (15-37); Albumin 3.5 g/dL (3.4-5.0); Alkaline Phosphatase 145 U/L (45-117); BUN Blood Urea Nitrogen 19 mg/dL (7-18); Bicarbonate 27 mmol/L (21-32); Bilirubin Direct 0.2 mg/dL (0-0.2); Bilirubin Total 0.6 mg/dL (0.2-1.0); Creatine Phosphokinase 363 U/L (26-192); Glucose Level 94 mg/dL (74-106); Magnesium 2.3 mg/dL (1.8-2.4); NT PRO-BNP 1022 pg/mL (<450); Potassium 4.3 mmol/L (3.5-5.1); Protein, Total 7.3 g/dL (6.4-8.2); Sodium Level 138 mmol/L (136-145); Troponin (Emerg Dept Use Only) < 0.02 ng/mL (0.0-0.045)
[2020-12-08 11:31] LABS: Urine Bacteria NONE SEEN /HPF (<20)
[2020-12-08 11:32] LABS: Urine Blood TRACE (NEG); Urine Glucose NEGATIVE (NEG); Urine Protein NEGATIVE (NEG); Urine Specific Gravity 1.025 (1.005-1.030)
[2020-12-08] MEDS ORDERED: NA CHLORIDE 0.9% 250 ML ONE (11:48)
--- NOTE | 2020-12-08 12:12 | RAD REPORT ---
EXAM DESCRIPTION: CT - Head C Spine Cap W Anish - 12/08/2020 11:43 am CLINICAL HISTORY: fall, head, neck, chest and abdomen pain COMPARISON: No comparisons TECHNIQUE: Axial [address] head images were obtained. Axial [address] cervical spine images were obtaine d with sagittal and coronal reconstruction images reviewed. During dynamic enhancement of 100mL non-i onic contrast, axial 5 mm images of the chest, abdomen and pelvis were obtained. Biphasic technique p erformed of the abdomen and pelvis. All CT scans are performed using dose optimization technique as appropriate and may include automated exposure control or mA/KV adjustment according to patient size. FINDINGS: No intracranial hemorrhage, mass or edema. No midline shift or abnormal fluid collection. Mastoid air cells and paranasal sinuses are clear. No skull fracture. Atrophy and chronic ischemic changes are present. Ventricles are in proportion to the volume loss. Cervical bodies are normal in height. Anterior subluxation of C6 on C7 is minimal and can be accounte d for by prominent facet degenerative change. Facet hypertrophy and uncovertebral joint hypertrophy c ause significant bony foraminal stenosis on the left at C3-4 with pronounced left-side and moderate r ight-sided foraminal stenosis at C4-5 and significant bilateral C5-6 foraminal stenosis. Left foramin al stenosis at C6-7. No other alignment abnormality seen. Significant dens anterior arch C1 degenerat olvin change present. Disc space narrowing present at all levels except C2-3. No paraspinal mass or hem atoma seen. Central canal detail is inherently limited. Concerns for traumatic disc herniation or tra umatic cord injury can be further addressed with MR imaging. CT chest shows no pneumothorax, pulmonary contusion or acute pleural fluid collection. Focal 3 centim eter fluid attenuation collection posteromedial right mid chest previous small loculated pleural flui d collection. No acute bone finding in this region. Significance is doubtful. No mediastinal hematoma and the aorta and pulmonary arteries are unremarkable. No chest will mass or abnormal axillary findi ng. No acute rib fractures seen. Old rib fractures noted on the left. No scapula fracture. The patien t does have advanced degenerative change at the left shoulder joint and less pronounced right shoulde r joint degenerative change. Small to moderate-sized hiatal hernia is present. Patient has accentuated thoracic kyphosis. There is approximately 50% wedge compression of the T7 bod y. Posterior wall height is preserved. No associated paraspinal mass or hematoma. Patient has concavi ty to the superior endplates of T4 and T5 with overall body height preserved. No acute fracture lines are identifiable. CT abdomen and pelvis show no injury to solid abdominal viscera. Gallbladder and biliary tree are unr emarkable. No acute bowel injury seen. There is large amount of stool present in the colon. Rectum is dilated by stool to 7 cm. There is diverticulosis without diverticulitis. No free air, free fluid or abnormal stranding. No urinary bladder abnormality. Right hip prosthesis in place. Left hip joint degenerative changes are present. Fracture is present a t the left ischial tuberosity without periosteal reaction or callus formation. No sacral ala fracture confirmed. Advanced degenerative change present in the lumbar spine. No acute lumbar compression fra cture identified. Fracture of the left superior pubic ramus is present. No fracture of the acetabulum identified. No proximal femur fracture identifiable. No significant vascular finding. IMPRESSION: Atrophy and chronic ischemic changes are present with no acute CT Head finding. Prominent cervical spine degenerative changes are present with no acute finding. No pneumothorax, pulmonary contusion or acute lung parenchymal finding. Approximately 50% wedge compression fracture deformity of the T7 body. Findings favor but are not def initive for chronic injury. Acute fractures of the left superior pubic ramus and ischium. No traumatic injury to the soft tissues of the abdomen and pelvis.
--- NOTE | 2020-12-08 12:20 | RAD REPORT ---
EXAM DESCRIPTION: RAD - Pelvis - 12/08/2020 11:59 am CLINICAL HISTORY: fall COMPARISON: Head C Spine Cap W Con dated 12/08/2020 TECHNIQUE: AP imaging of the pelvis was obtained. FINDINGS: Fracture of the left superior and inferior pubic rami noted. No significant displacement. Fracture of the proximal left femur is not identified. Degenerative changes are present. Bones are os teopenic. No fracture of the sacral ala identified. Overlying bowel content is limiting. No right hem ipelvis fracture. Right total prosthesis in place. IMPRESSION: Left superior and inferior pubic ramus fractures.
--- NOTE | 2020-12-08 12:21 | RAD REPORT ---
EXAM DESCRIPTION: RAD - Chest Single View - 12/08/2020 11:59 am CLINICAL HISTORY: found on ground, chest pain COMPARISON: None TECHNIQUE: AP portable chest image was obtained 12/08/2020 11:59 am . FINDINGS: Scattered fibrotic lung change present. No pneumothorax or pulmonary contusion. Skin fold artifacts are present. Heart and vasculature are normal. No pleural fluid collection. Mediastinum is distorted by rotation. Bones are osteopenic. Bilateral shoulder joint degenerative change present. No acute bone finding co nfirmed. No acute aortic findings suspected. IMPRESSION: No acute cardiopulmonary process.
--- NOTE | 2020-12-08 14:02 | ER ---
Nurse's Notes [facility] Name: Ally Bedolla Age: 89 yrs Sex: Female : 1930 Arrival Date: 12/08/2020 Time: 10:31 Bed 4 Private MD: Diagnosis: Fall on same level from slipping, tripping and stumbling;Multiple fractures of pelvis without disruption of pelvic ring Presentation: 12/08 10:33 Chief complaint: EMS states: pt from home, son states she must have feel between 4-930 tw2 am this morning, it was an unwitnessed fall unknown LOC, pts son states she was awake when he came in this morning, she was laying on the floor with her neck to a metal chair, grimaced on LEFT shoulder, has advanced alzheimers and is confused which is her baseline, she is alert to name only, BGL 97, pts son states she is not taking any medication because she refusing them, bp was 200's/90's. Coronavirus screen: At this time, the client does not indicate any symptoms associated with coronavirus-19. Ebola Screen: Patient denies travel to an Ebola-affected area in the 21 days before illness onset. Initial Sepsis Screen: Does the patient meet any 2 criteria? No. Patient's initial sepsis screen is negative. Does the patient have a suspected source of infection? No. Patient's initial sepsis screen is negative. Risk Assessment: Do you want to hurt yourself or someone else? Patient reports no desire to harm self or others. Onset of symptoms was December 08, 2020. Care prior to arrival: Cervical collar in place. Placed on backboard. Mechanism of Injury: Fall unwitnessed fall, found down on floor this morning by pts son. 10:33 Method Of Arrival: EMS: [facility] tw2 10:33 Acuity: ELLIE 2 tw2 Triage Assessment: 10:31 General: Appears in no apparent distress. slender, Behavior is calm. tw2 10:32 Pain: Complains of pain in left hip Unable to use pain scale. Patient appears to be tw2 grimacing, for LEFT shoulder. 10:32 EENT: No signs and/or symptoms were reported regarding the EENT system. Neuro: Level of tw2 Consciousness is awake, alert, Oriented to person. Cardiovascular: Patient's skin is warm and dry. Respiratory: Airway is patent Respiratory effort is even, unlabored, Respiratory pattern is regular, symmetrical. GI: No signs and/or symptoms were reported involving the gastrointestinal system. Abdomen is flat. : No signs and/or symptoms were reported regarding the genitourinary system. Derm: Skin is fragile, is thin, has skin tears on noted to LEFT posterior shoulder, not bleeding noted Skin is dry, Skin temperature is cool. Musculoskeletal: Range of motion: limited in left hip. Historical: - Allergies: 11:39 No Known Allergies; tw2 - PMHx: 10:37 Alzheimers; Heart Murmur; tw2 - PSHx: 10:37 Hip replacement R; tw2 - Immunization history:: Adult Immunizations unknown. - Social history:: Smoking status: unknown. Screenin:32 Abuse screen: Denies threats or abuse. Denies injuries from another. Nutritional sv screening: No deficits noted. Tuberculosis screening: No symptoms or risk factors identified. 10:37 Fall Risk Secondary diagnosis (15 points) Alzheimer's, impaired mobility. tw2 Assessment: 10:32 Reassessment: see triage assessment. tw2 11:38 Reassessment: pts son Marquise cam#[phone] is caregiver and having a hard time caring tw2 for her at home, provider notified. 12:30 Reassessment: Patient appears in no apparent distress at this time. No changes from tw2 previously documented assessment. Patient and/or family updated on plan of care and expected duration. Pain level reassessed. 13:30 Reassessment: Patient appears in no apparent distress at this time. No changes from tw2 previously documented assessment. Patient and/or family updated on plan of care and expected duration. Pain level reassessed. 14:30 Reassessment: Patient appears in no apparent distress at this time. No changes from tw2 previously documented assessment. Patient and/or family updated on plan of care and expected duration. Pain level reassessed. 15:32 Reassessment: pts son at bedside at this time. tw2 15:34 Reassessment: Patient appears in no apparent distress at this time. No changes from tw2 previously documented assessment. Patient and/or family updated on plan of care and expected duration. Pain level reassessed. 16:30 Reassessment: Patient appears in no apparent distress at this time. No changes from tw2 previously documented assessment. Patient and/or family updated on plan of care and expected duration. Pain level reassessed. 17:10 Reassessment: Patient appears in no apparent distress at this time. No changes from tw2 previously documented assessment. Patient and/or family updated on plan of care and expected duration. Pain level reassessed. 18:10 Reassessment: Patient appears in no apparent distress at this time. No changes from tw2 previously documented assessment. Patient and/or family updated on plan of care and expected duration. Pain level reassessed. 19:30 Reassessment: Patient appears in no apparent distress at this time. No changes from previously documented assessment. Patient and/or family updated on plan of care and expected duration. Pain level reassessed. Vital Signs: 10:33 BP 199 / 71; Pulse 66; Resp 16; Temp 97.9(TE); Pulse Ox 97% on R/A; Weight 52.16 kg (R);tw2 11:18 BP 132 / 80; Pulse 76; Resp 16; Pulse Ox 97% on R/A; tw2 12:30 BP 179 / 75; Pulse 88; Resp 24; Pulse Ox 95% ; sv 13:15 BP 135 / 91; Pulse 82; Resp 20; Pulse Ox 95% ; sv 13:59 BP 168 / 70; Pulse 81; Resp 20; Pulse Ox 97% ; sv 15:00 BP 142 / 72; Pulse 85; Resp 22; Pulse Ox 97% on R/A; tw2 16:00 BP 150 / 70; Pulse 84; Resp 16; Pulse Ox 100% on R/A; tw2 17:16 BP 152 / 72; Pulse 89; Resp 17; Pulse Ox 96% on R/A; tw2 18:10 BP 150 / 91; Pulse 82; Resp 17; Pulse Ox 97% on R/A; tw2 19:30 BP 145 / 71; Pulse 85; Resp 18; Pulse Ox 94% on R/A; ED Course: 10:31 Patient arrived in ED. tw2 10:32 Nelida Velez RN is Primary Nurse. tw2 10:32 Arm band placed on. sv 10:33 Ángel Manning PA is PHCP. cp 10:33 Ángel Garvin MD is Attending Physician. cp 10:33 Patient has correct armband on for positive identification. Placed in gown. Bed in low sv position. Call light in reach. Side rails up X2. telemetry monitor on. Pulse ox on. NIBP on. Door closed. Head of bed elevated. 10:36 Triage completed. tw2 11:00 Inserted saline lock: 20 gauge in right antecubital area, using aseptic technique. tw2 ,using aseptic technique. Uriah GOLDEN Blood collected. 11:11 Straight cath inserted, using sterile technique, 18 Fr. Specimen obtained. by Uriah GOLDEN tw2 Returned jessie urine. Patient tolerated well. 11:17 Urine Microscopic Only Sent. tw2 11:43 CT Traumagram (Head C Spine CAP W Con) In Process Unspecified. EDMS 11:44 CT completed. Patient tolerated procedure well. Patient moved back from CT. sw 11:59 XRAY Chest (1 view) In Process Unspecified. EDMS 11:59 XRAY Pelvis In Process Unspecified. EDMS 14:01 Josef Madden is Hospitalizing Provider. cp 15:04 London cath inserted, using sterile technique, 18 Fr., by side guider, balloon inflated, to tw2 gravity drainage. 19:24 Primary Nurse role handed off by Nelida Velez RN 2 19:27 Deena Mix, TOMAS is Primary Nurse. 20:00 No provider procedures requiring assistance completed. Patient admitted, IV remains in place. 12/09 08:16 Primary Nurse role handed off by Deena Mix RN 08:59 Kevin North, RN is Primary Nurse. bp Administered Medications: 12/08 11:34 Drug: NS 0.9% 250 ml Route: IV; Rate: bolus; Site: right antecubital; tw2 12:30 Follow up: Response: No adverse reaction; IV Status: Completed infusion; IV Intake: tw2 250ml Intake: 12:30 IV: 250ml; Total: 250ml. tw2 Outcome: 14:01 Decision to Hospitalize by Provider. cp 20:00 Admitted to ER Hold. Please see [facility] for further documentation. 20:00 Condition: stable 20:00 Instructed on the need for admit. 12/09 18:27 Patient left the ED. bp Signatures: Dispatcher [employer] EDMS Malu Martinez Stephanie, RN RN sv Warren, Shannon Ángel Manning PA PA cp Nelida Velez RN RN tw2 Deena Mix, TOMAS MARIN Kevin North, TOMAS MARIN Alex Shea 2 Corrections: (The following items were deleted from the chart) 12/08 15:32 10:31 Pain: Unable to use pain scale. Patient appears to be grimacing, for LEFT tw2 shoulder tw2
--- NOTE | 2020-12-08 14:02 | EDPHYS ---
Physician Documentation [facility] Name: Ally Bedolla Age: 89 yrs Sex: Female : 1930 Arrival Date: 12/08/2020 Time: 10:31 Bed 4 Private MD: ED Physician Ángel Garvin HPI: 12/08 10:39 This 89 yrs old Female presents to ER via EMS with complaints of Fall Injury. cp 10:39 Details of fall: The patient fell from an upright position, while walking. Onset: The cp symptoms/episode began/occurred this morning, Son reports sometime between 0400 and 0900. Unable to obtain HPI due to baseline dementia. Patient found on ground by son and brought to ED by EMS. Historical: - Allergies: 11:39 No Known Allergies; tw2 - PMHx: 10:37 Alzheimers; Heart Murmur; tw2 - PSHx: 10:37 Hip replacement R; tw2 - Immunization history:: Adult Immunizations unknown. - Social history:: Smoking status: unknown. ROS: 10:40 Constitutional: Negative for fever. cp 10:40 Neck: Negative for pain with movement, bony tenderness. 10:40 Cardiovascular: Negative for chest pain. 10:40 Back: Negative for pain at rest. 10:40 Neuro: Negative for altered mental status. 10:40 Unable to obtain ROS due to baseline dementia. Exam: 10:45 Constitutional: The patient appears in no acute distress, alert, awake, cp non-diaphoretic, non-toxic, well developed, frail. 10:45 Head/Face: Normocephalic, atraumatic. cp 10:45 Eyes: Periorbital structures: appear normal, Pupils: equal, round, and reactive to light and accomodation, Extraocular movements: intact throughout, Conjunctiva: normal, no exudate, no injection, Sclera: no appreciated abnormality, Lids and lashes: appear normal, bilaterally. 10:45 ENT: External ear(s): are unremarkable, Nose: is normal, Mouth: Lips: moist, Oral mucosa: moist, Posterior pharynx: Airway: no evidence of obstruction, patent. 10:45 Neck: C-spine: vertebral tenderness, is not appreciated, crepitus, is not appreciated. 10:45 Chest/axilla: Inspection: normal, Palpation: is normal, no crepitus, no tenderness. 10:45 Cardiovascular: Rate: normal, Rhythm: regular, Edema: is not appreciated, JVD: is not appreciated. 10:45 Respiratory: the patient does not display signs of respiratory distress, Respirations: normal, no use of accessory muscles, no retractions, labored breathing, is not present, Breath sounds: are clear throughout, no decreased breath sounds. 10:45 Abdomen/GI: Inspection: abdomen appears normal, Bowel sounds: active, all quadrants, Palpation: abdomen is soft and non-tender, in all quadrants. 10:45 Back: vertebral tenderness, is not appreciated. 10:45 Musculoskeletal/extremity: Exam is negative for decreased range of motion, deformity, Pulses: noted to be 2+ in the right radial artery, right dorsalis pedis artery, left radial artery and left dorsalis pedis artery. 10:45 Skin: cellulitis, is not appreciated, no rash present. 10:45 Neuro: Orientation: to person. 14:50 ECG was reviewed by the Attending Physician. cp Vital Signs: 10:33 BP 199 / 71; Pulse 66; Resp 16; Temp 97.9(TE); Pulse Ox 97% on R/A; Weight 52.16 kg (R);tw2 11:18 BP 132 / 80; Pulse 76; Resp 16; Pulse Ox 97% on R/A; tw2 12:30 BP 179 / 75; Pulse 88; Resp 24; Pulse Ox 95% ; sv 13:15 BP 135 / 91; Pulse 82; Resp 20; Pulse Ox 95% ; sv 13:59 BP 168 / 70; Pulse 81; Resp 20; Pulse Ox 97% ; sv 15:00 BP 142 / 72; Pulse 85; Resp 22; Pulse Ox 97% on R/A; tw2 16:00 BP 150 / 70; Pulse 84; Resp 16; Pulse Ox 100% on R/A; tw2 17:16 BP 152 / 72; Pulse 89; Resp 17; Pulse Ox 96% on R/A; tw2 18:10 BP 150 / 91; Pulse 82; Resp 17; Pulse Ox 97% on R/A; tw2 19:30 BP 145 / 71; Pulse 85; Resp 18; Pulse Ox 94% on R/A; MDM: 10:46 Patient medically screened. [place] 12:40 Differential diagnosis: closed head injury, contusion, fracture, multiple trauma. 12:45 Data reviewed: vital signs, nurses notes, lab test result(s), EKG, radiologic studies, cp CT scan, plain films, I have discussed the patient's presentation/case with the attending Emergency Department Physician; and as a result, I will admit patient. 12:45 Test interpretation: by ED physician or midlevel provider: ECG, plain radiologic cp studies. 13:00 Physician consultation: Josef Madden was contacted at 13:00, regarding admission, to the telemetry unit. patient's condition. 12/08 10:38 Order name: Basic Metabolic Panel 12/08 10:38 Order name: CBC with Diff 12/08 10:38 Order name: LFT's 12/08 10:38 Order name: Magnesium 12/08 10:38 Order name: NT PRO-BNP 12/08 10:38 Order name: PT-INR 12/08 10:38 Order name: Troponin (emerg Dept Use Only) 12/08 10:38 Order name: Procalcitonin; Complete Time: 12:37 12/08 10:38 Order name: Lactate 12/08 10:38 Order name: Urine Microscopic Only; Complete Time: 12:36 12/08 12:37 Interpretation: Normal except: URBC 5-10. 12/08 10:38 Order name: CK 12/08 11:07 Order name: CBC with Automated Diff; Complete Time: 11:20 EDMS 12/08 11:20 Interpretation: Normal except: WBC 13.60; LAZARO% 84.7; LYM% 9.7; NEUT A 11.5. 12/08 11:11 Order name: Protime (+INR); Complete Time: 11:20 EDMD 12/08 11:20 Order name: Lactate; Complete Time: 11:20 EDMD 12/08 11:21 Interpretation: LAC 0.9; Reviewed. 12/08 10:38 Order name: XRAY Chest (1 view); Complete Time: 12:37 12/08 12:37 Interpretation: Report reviewed. 12/08 10:38 Order name: CT Traumagram (Head C Spine CAP W Con); Complete Time: 12:37 12/08 12:39 Interpretation: Report reviewed. 12/08 11:24 Order name: Urine Dipstick--Ancillary (enter results); Complete Time: 12:36 bd 12/08 12:37 Interpretation: Normal except: UBLD TRACE. cp 12/08 11:26 Order name: Basic Metabolic Panel; Complete Time: 12:36 EDMD 12/08 12:37 Interpretation: Normal except: BUN 19; GFR 57. 12/08 11:26 Order name: Liver (Hepatic) Function; Complete Time: 12:36 EDMD 12/08 12:38 Interpretation: Normal except: ALK 145; GLOB 3.8; A/G 0.9. 12/08 11:26 Order name: Creatine Phosphokinase; Complete Time: 12:36 EDMD 12/08 11:26 Order name: Troponin (Emerg Dept Use Only); Complete Time: 12:37 EDMD 12/08 11:26 Order name: NT PRO-BNP; Complete Time: 12:36 EDMD 12/08 11:26 Order name: Magnesium; Complete Time: 12:37 EDMD 12/08 11:27 Order name: CREATININE WHOLE BLOOD; Complete Time: 12:37 EDMD 12/09 05:16 Order name: CBC with Automated Diff EDMD 12/09 05:36 Order name: Basic Metabolic Panel EDMD 12/09 05:36 Order name: Magnesium EDMD 12/09 05:36 Order name: Thyroid Stimulating Hormone [facility] 12/09 17:05 Order name: COVID-19 : Document "Date of Symptom Onset" if Symptomatic. bp 12/09 18:15 Order name: CORONAVIRUS EDMD 12/08 10:38 Order name: EKG; Complete Time: 10:39 cp 12/08 10:38 Order name: Cardiac monitoring; Complete Time: 10:57 12/08 10:38 Order name: EKG - Nurse/Tech; Complete Time: 15:29 cp 12/08 10:38 Order name: IV Saline Lock; Complete Time: 11:17 cp 12/08 10:38 Order name: Labs collected and sent; Complete Time: 11:17 cp 12/08 10:38 Order name: O2 Per Protocol; Complete Time: 10:57 cp 12/08 10:38 Order name: O2 Sat Monitoring; Complete Time: 10:57 cp 12/08 10:38 Order name: Urine Dipstick-Ancillary (obtain specimen); Complete Time: 11:17 cp 12/08 10:38 Order name: XRAY Pelvis; Complete Time: 12:37 12/08 10:48 Order name: Straight Cath - Urine; Complete Time: 11:17 tw2 EC:50 Rate is 84 beats/min. Rhythm is regular. CA interval is normal. QRS interval is cp prolonged at 134 msec. QT interval is normal. T waves are Inverted in leads I, aVL, aVF. Interpreted by me. Reviewed by me. Administered Medications: 11:34 Drug: NS 0.9% 250 ml Route: IV; Rate: bolus; Site: right antecubital; tw2 12:30 Follow up: Response: No adverse reaction; IV Status: Completed infusion; IV Intake: tw2 250ml Disposition: 14:15 Chart complete. cp 12/10 05:40 Co-signature as Attending Physician, Ángel Garvin MD I agree with the assessment and [facility] plan of care. Disposition: 12/08/20 14:01 Hospitalization ordered by Josef Madden for Inpatient Admission. Preliminary diagnosis are Fall on same level from slipping, tripping and stumbling, Multiple fractures of pelvis without disruption of pelvic ring. - Bed requested for Telemetry/MedSurg (Inpatient). - Status is Inpatient Admission. bp - Condition is Stable. - Problem is new. - Symptoms have improved. Signatures: Dispatcher [employer] EDMS Malu Martinez Kimberly, RN RN kl Anderson, Corey, MD MD cha Page, Corey, SRINATH PA cp Nelida Velez RN RN tw2 Kevin North RN RN bp Corrections: (The following items were deleted from the chart) 12/08 10:57 10:47 London ordered. cp sv 18:33 14:01 Hospitalization Ordered by Josef Madden for Inpatient Admission. Preliminary bd diagnosis is Fall on same level from slipping, tripping and stumbling; Multiple fractures of pelvis without disruption of pelvic ring. Bed requested for Telemetry/MedSurg (Inpatient). Status is Inpatient Admission. Condition is Stable. Problem is new. Symptoms have improved. cp 12/09 17:26 12/08 18:33 12/08/2020 14:01 Hospitalization Ordered by Josef Madden for Inpatient kl Admission. Preliminary diagnosis is Fall on same level from slipping, tripping and stumbling; Multiple fractures of pelvis without disruption of pelvic ring. Bed requested for [facility] ER HOLD. Status is Inpatient Admission. Condition is Stable. Problem is new. Symptoms have improved. bd 12/09 18:27 17:26 12/08/2020 14:01 Hospitalization Ordered by Josef Madden for Inpatient bp Admission. Preliminary diagnosis is Fall on same level from slipping, tripping and stumbling; Multiple fractures of pelvis without disruption of pelvic ring. Bed requested for Telemetry/MedSurg (Inpatient). Status is Inpatient Admission. Condition is Stable. Problem is new. Symptoms have improved. kl 12/10 16:34 12/08 10:40 Unable to obtain ROS due to baseline dementia, cp cp 12/10 16:36 12/09 10:40 Constitutional: Negative for fever, cp cp 12/10 16:12/09 10:40 Cardiovascular: Negative for chest pain, cp cp 12/10 16:36 12/09 10:40 Neck: Negative for pain with movement, bony tenderness, cp cp 12/10 16:36 12/09 10:40 Back: Negative for pain at rest, cp cp 12/10 16:36 12/09 10:40 Neuro: Negative for altered mental status, cp cp 12/10 16:36 12/09 10:40 Unable to obtain ROS due to baseline dementia, cp cp 12/10 16:37 12/08 12:45 Differential diagnosis: closed head injury, contusion, fracture, multiple cp trauma, cp
--- NOTE | 2020-12-08 15:23 | P.HP ---
Certification for Inpatient Patient admitted to: Observation With expected LOS: <2 Midnights Practitioner: I am a practitioner with admitting privileges, knowledge of patient current condition, hospital course, and medical plan of care. Services: Services provided to patient in accordance with Admission requirements found in Title 42 Section 412.3 of the Code of Federal Regulations Patient History Date of Service: 12/08/20 Reason for admission: Fall History of Present Illness: 89-year-old woman with a history of advanced dementia was brought to the emergency department because patient was found on the floor. There is a report she had been on the floor for about 4-5 hours. Patient cannot provide any history. His son who brought her to the emergency department was not available to give history. Images done in the ED report left superior and inferior ramus fracture. She has mild leukocytosis. UA indicates no UTI. Patient is hospitalized for further management. - Past Medical/Surgical History -: Alzheimer dementia -: Heart murmur - Social History Smoking Status: Never smoker Place of Residence: Home Review of Systems is unable to be obtained (Due to altered mental status.) Physical Examination - Physical Exam General: In no apparent distress, Confused HEENT: Mucous membr. moist/pink Neck: Supple, JVD not distended Respiratory: Clear to auscultation bilaterally, Normal air movement Cardiovascular: No edema, Regular rate/rhythm, Normal S1 S2 Gastrointestinal: Normal bowel sounds, Soft and benign, Non-distended, No tenderness Musculoskeletal: No swelling, No tenderness Integumentary: No rashes, No erythema Neurological: Other (No focal deficit.), Dementia Urinary: London catheter - Studies Laboratory Data (last 24 hrs) 12/08/20 10:55: PT 12.0, INR 1.02 12/08/20 10:55: WBC 13.60 H, Hgb 12.9, Hct 38.4, Plt Count 344 12/08/20 10:55: Sodium 138, Potassium 4.3, BUN 19 H, Creatinine 0.92, Glucose 94, Magnesium 2.3, Total Bilirubin 0.6, AST 33, ALT 17, Alkaline Phosphatase 145 H Assessment and Plan - Problems (Diagnosis) (1) Pelvic fracture Current Visit: Yes Status: Acute (2) Fall at home Current Visit: Yes Status: Acute (3) Dementia Current Visit: Yes Status: Acute - Plan Place patient under observation. Pain management with Com[place] and IV morphine as needed. PT to evaluate. Slow IV hydration Regular diet. Monitor CBC and BMP. Consult to bilingual social worker to assist with disposition. - Advance Directives Does patient have a Living Will: No Does patient have a Durable POA for Healthcare: No
[2020-12-08] MEDS ORDERED: HALOPERIDOL LACT 5 MG/ML INJ IV PRN (20:35)
[2020-12-08] MEDS: NA CHLORIDE 0.9% 1,000 ML IV SCH (20:35)
[2020-12-08] MEDS ORDERED: ACETAMINOPHEN 500 MG TAB PO PRN (20:35)
[2020-12-08] MEDS ORDERED: MORPHINE 2 MG/ML SYR IV PRN (20:35)
[2020-12-08] MEDS ORDERED: HYDROCODONE/APAP 5/325 MG TAB PO PRN (20:35)
[2020-12-08] MEDS ORDERED: NA CHLORIDE 0.9% 1,000 ML ONE (22:40)
[2020-12-09 05:13] LABS: Absolute Lymphocytes (CBC) 1.1 K/uL (0.7-4.9); Basophils % 0.9 % (0-1.3); Hematocrit 34.5 % (36.0-45.0); Lymphocytes % 10.4 % (15.3-44.8); MPV 8.2 fL (7.6-11.3)
[2020-12-09 05:36] LABS: Magnesium 2.2 mg/dL (1.8-2.4); Potassium 4.4 mmol/L (3.5-5.1); Thyroid Stimulating Hormone 1.08 uIU/mL (0.360-3.740)
--- NOTE | 2020-12-09 06:28 | EKG ---
Test Date: 2020-12-08 Test Time: 14:41:40 Digital Production Artist: NEGRO MEASUREMENT RESULTS: Intervals: Rate: 84 HI: 164 QRSD: 134 QT: 418 QTc: 493 Ripton: P: 50 HI: 164 QRS: -10 T: 222 INTERPRETIVE STATEMENTS: Sinus rhythm with fusion complexes Left bundle branch block Abnormal ECG Compared to ECG 02/08/2006 17:42:50 Fusion complex(es) now present Left bundle-branch block now present Sinus bradycardia no longer present Left ventricular hypertrophy no longer present T-wave abnormality no longer present Electronically Signed On 12-09-20 06:27:07 [employer] SCI[employer] by Jv Cárdenas
[2020-12-09] MEDS: ENOXAPARIN 40 MG/0.4 ML SQ SCH (09:00)
[2020-12-09] MEDS ORDERED: ENOXAPARIN 40 MG/0.4 ML SQ ONE (09:49)
--- NOTE | 2020-12-09 16:20 | P.PN ---
Subjective Date of Service: 12/09/20 Chief Complaint: Fall Patient is awake and confused. She appeared comfortable. Physical Examination - Vital Signs Temperature: 97.2 F Blood Pressure: 167/74 Pulse: 74 Respirations: 20 Pulse Ox (%): 95 - Physical Exam General: Confused HEENT: Mucous membr. moist/pink Respiratory: Clear to auscultation bilaterally, Normal air movement Cardiovascular: Regular rate/rhythm, Normal S1 S2 Gastrointestinal: Normal bowel sounds, Soft and benign, Non-distended, No tenderness Musculoskeletal: No swelling Integumentary: No rashes Neurological: Other (No focal motor deficit), Dementia Urinary: London catheter Assessment And Plan - Current Problems (Diagnosis) (1) Pelvic fracture Current Visit: Yes Status: Acute (2) Fall at home Current Visit: Yes Status: Acute (3) Dementia Current Visit: Yes Status: Acute - Plan Pain management with [place] and IV morphine as needed. Slow IV hydration. Feeding as tolerated Monitor CBC and BMP. PT as tolerated. Plan of care discussed with patient's son PIO. Son stated the family would have difficulty caring for her with a pelvic fracture and considering facility placement. Social service assisting with with disposition.
[2020-12-09] MEDS: NA CHLORIDE 0.9% 1,000 ML IV SCH ×2 (16:35→19:49)
[2020-12-09 17:32] VITALS: BMI 19.7
[2020-12-10] MEDS: ENOXAPARIN 40 MG/0.4 ML SQ SCH (09:41)
--- NOTE | 2020-12-10 12:13 | P.PN ---
Subjective Date of Service: 12/10/20 Chief Complaint: Fall Patient is awake and more interactive today. She is obeying commands and was able to tolerate physical therapy. Patient ambulated a few steps per physical therapy. Physical Examination - Vital Signs Temperature: 97.2 F Blood Pressure: 159/79 Pulse: 71 Respirations: 18 Pulse Ox (%): 96 - Physical Exam General: In no apparent distress, Confused HEENT: Mucous membr. moist/pink Respiratory: Clear to auscultation bilaterally, Normal air movement Cardiovascular: No edema, Regular rate/rhythm, Normal S1 S2 Gastrointestinal: Soft and benign, Non-distended Musculoskeletal: No swelling, No tenderness Integumentary: No rashes, No erythema Neurological: Dementia Assessment And Plan - Current Problems (Diagnosis) (1) Pelvic fracture Current Visit: Yes Status: Acute (2) Fall at home Current Visit: Yes Status: Acute (3) Dementia Current Visit: Yes Status: Acute - Plan Pain management with [place] and IV morphine as needed. Discontinue IV fluid. Feeding as tolerated Monitor CBC and BMP. Continue PT Plan of care discussed with patient's son PIO. Son stated the family would have difficulty caring for her with a pelvic fracture and considering facility placement. Disposition to skilled rehab.
[2020-12-10] MEDS: NA CHLORIDE 0.9% 1,000 ML IV SCH (13:18)
[2020-12-10] MEDS: HYDRALAZINE HCL 20 MG/ML VIAL IV PRN (17:13)
[2020-12-10 22:42] VITALS: O2SAT 96
[2020-12-11 06:25] LABS: Magnesium 2.4 mg/dL (1.8-2.4); Phosphorus 2.7 mg/dL (2.5-4.9); Potassium 3.8 mmol/L (3.5-5.1)
[2020-12-11] MEDS ORDERED: POTASSIUM 25 MEQ EFFERV TAB PO ONE (09:00)
[2020-12-11] MEDS: ENOXAPARIN 40 MG/0.4 ML SQ SCH (09:29)
[2020-12-11] MEDS: HYDRALAZINE HCL 20 MG/ML VIAL IV PRN (09:30)
[2020-12-11] MEDS: NA CHLORIDE 0.9% 1,000 ML IV SCH (09:31)
--- NOTE | 2020-12-11 11:33 | P.DS ---
Admission Date: 12/08/20 Discharge Date: 12/11/20 Disposition: TRANSFER TO [facility] Discharge Condition: FAIR Reason for Admission: Fall - Problems (1) Pelvic fracture Current Visit: Yes Status: Acute (2) Fall at home Current Visit: Yes Status: Acute (3) Dementia Current Visit: Yes Status: Acute Brief History of Present Illness: 89-year-old woman with a history of advanced dementia was brought to the emergency department because patient was found on the floor. There is a report she had been on the floor for about 4-5 hours. Patient cannot provide any history. His son who brought her to the emergency department was not available to give history. Images done in the ED report left superior and inferior ramus fracture. She has mild leukocytosis. UA indicates no UTI. Patient is hospitalized for further management. Hospital Course: Patient admitted to the medical floor and treated supportively with IV hydration, IV opioids for pain management. She was seen and evaluated by physical therapy. Patient was able to participate in physical therapy and take a few steps. She was clinically stable where unremarkable blood work. Patient has been accepted for skilled rehab. She is deemed clinically stable for discharge. She is prescribed aspirin for DVT prophylaxis. Vital Signs/Physical Exam: Temp Pulse Resp BP Pulse Ox 98.2 F 73 18 180/77 H 95 12/11/20 08:00 12/11/20 08:00 12/11/20 08:00 12/11/20 08:00 12/11/20 08:00 General: Other (Frail) Neck: Supple Respiratory: Clear to auscultation bilaterally, Normal air movement Cardiovascular: No edema, Regular rate/rhythm, Normal S1 S2 Gastrointestinal: Normal bowel sounds, Soft and benign, Non-distended, No tenderness Musculoskeletal: No swelling, No tenderness Integumentary: No rashes Neurological: Other (No focal motor deficit) Laboratory Data at Discharge: WBC 10.90 K/uL (4.3-10.9) D 12/09/20 04:57 Hgb 11.9 g/dL (12.0-15.0) L 12/09/20 04:57 Hct 34.5 % (36.0-45.0) L 12/09/20 04:57 Plt Count 305 K/uL (152-406) 12/09/20 04:57 PT 12.0 SECONDS (9.5-12.5) 12/08/20 10:55 INR 1.02 12/08/20 10:55 Sodium 140 mmol/L (136-145) 12/11/20 05:30 Potassium 3.8 mmol/L (3.5-5.1) 12/11/20 05:30 BUN 14 mg/dL (7-18) 12/11/20 05:30 Creatinine 0.64 mg/dL (0.55-1.3) 12/11/20 05:30 Glucose 93 mg/dL (74-106) 12/11/20 05:30 Phosphorus 2.7 mg/dL (2.5-4.9) 12/11/20 05:30 Magnesium 2.4 mg/dL (1.8-2.4) 12/11/20 05:30 Total Bilirubin 0.6 mg/dL (0.2-1.0) 12/08/20 10:55 AST 33 U/L (15-37) 12/08/20 10:55 ALT 17 U/L (12-78) 12/08/20 10:55 Alkaline Phosphatase 145 U/L (45-117) H 12/08/20 10:55 Home Medications: Aspirin [Aspirin EC 81 MG] 81 mg PO DAILY #30 tablet. 12/11/20 New Medications: Aspirin [Aspirin EC 81 MG] 81 mg PO DAILY #30 tablet. Followup: MAURICIO KINGSTON [Primary Care Provider] - (within 4 weeks.)
[2020-12-11 14:43] VITALS: BP 174/75; TEMP 97.8
== END 2020-12-11 16:34 ==
LOC: ER 10:23 → ERHOLD 15:07 → 2ND 12-09 18:09 → INTOOBSV 12-10 08:43 → OBSVTOIN 12-10 08:43
PROVIDERS: ADMIT Internal Medicine; ATTEND Internal Medicine
DX: S32.82XA Multiple fractures of pelvis without disruption of pelvic ring, initial encounter for closed fracture (principal); W01.0XXA Fall on same level from slipping, tripping and stumbling without subsequent striking against object, initial encounter; Y92.009 Unspecified place in unspecified non-institutional (private) residence as the place of occurrence of the external cause; F03.90 Unspecified dementia, unspecified severity, without behavioral disturbance, psychotic disturbance, mood disturbance, and anxiety; D72.829 Elevated white blood cell count, unspecified; R01.1 Cardiac murmur, unspecified; Z96.641 Presence of right artificial hip joint; Z20.822 Contact with and (suspected) exposure to COVID-19
CPT/HCPCS: 96365; 93005; 85025 ×2; 80048 ×3; 36415 ×2; 83735 ×3; 82550; 84100; 85610; 82565; 80076; 83605; 84443; 84484; 84145; 83880; 70450; 72125; 71260; 74177; 71045; 72170; 97116 ×2; 97161; 97530; 51702 ×2; 99285; U0003; Q9967; J0360 ×2; J1650 ×3; J2270; J7050; J7030 ×4; 81003; 81015; G0378